=== PATIENT | female | born 1945 | race Caucasian/White ===

== ENCOUNTER 2018-04-23 03:25 | Emergency (ER) | payer OTHER | END 2018-04-23 06:21 | disposition home or self-care (01) | LOC: ED 03:25 ==

== ENCOUNTER 2018-08-13 11:11 | Observation (INO) | payer OTHER ==
[~2018-08-13] VITALS: Ht 160 cm; Wt 59.9 kg
[2018-08-13 11:15] VITALS: Ht 160 cm; Wt 59.9 kg
[2018-08-13 12:33] LABS: BASOPHIL % 0.3 % (0-2); PLATELET COUNT 258 x10^3mcL (130-400); RED CELL DISTRIBUTION WIDTH 13.3 % (11.5-14.5)
[2018-08-13 12:42] LABS: CALCIUM 9.4 mg/dL (8.5-10.1); CARBON DIOXIDE 28.3 mmol/L (21-32); CHLORIDE SERUM 101 mmol/L (98-107); CREATININE SERUM 0.8 mg/dL (0.6-1.0); GLUCOSE SERUM 111 mg/dL (74-106); POTASSIUM SERUM 3.4 mmol/L (3.5-5.1); SODIUM SERUM 137 mmol/L (136-145)
[2018-08-13 12:55] LABS: ALBUMIN 3.9 g/dL (3.4-5.0); ALKALINE PHOSPHATASE 94 U/L (46-116); ALT/SGPT 37 U/L (14-59); AST/SGOT 15 U/L (15-37); BILIRUBIN TOTAL 0.5 mg/dL (0.20-1.00); CHOLESTEROL 147 mg/dL (<200); HDL CHOLESTEROL 60 mg/dL (40-60); LIPASE 227 IU/L (73-393); T4(THYROXINE) 10.3 ug/dL (4.7-13.3); TOTAL PROTEIN, SERUM 7.6 g/dL (6.4-8.2)
[2018-08-13] MEDS ORDERED: FLA500 PO (13:46)
[2018-08-13] MEDS ORDERED: GOOD SENSE OMEP20 MG PO (13:46)
[2018-08-13] MEDS ORDERED: TETRACYCLINE H500 M1 PO (13:47)
[2018-08-13 14:08] LABS: microscopic required? YES; urine erythrocyte TRACE (NEGATIVE)
[2018-08-13 15:49] VITALS: BP 171/74
[2018-08-13 20:52] VITALS: BP 147/76
[2018-08-14 05:48] VITALS: BP 142/72
[2018-08-14 06:37] LABS: BASOPHIL % 0.5 % (0-2); PLATELET COUNT 225 x10^3mcL (130-400); RED CELL DISTRIBUTION WIDTH 13.8 % (11.5-14.5)
[2018-08-14 06:59] LABS: CARBON DIOXIDE 23.7 mmol/L (21-32); CHLORIDE SERUM 111 mmol/L (98-107); CREATININE SERUM 0.6 mg/dL (0.6-1.0); GLUCOSE SERUM 95 mg/dL (74-106); MAGNESIUM 2.1 mg/dL (1.8-2.4); POTASSIUM SERUM 4.1 mmol/L (3.5-5.1); SODIUM SERUM 145 mmol/L (136-145)
[2018-08-14 10:07] VITALS: BP 155/65
[2018-08-14 12:50] VITALS: BP 134/67
[2018-08-14] MEDS ORDERED: PROTONIX40 MG PO (17:21)
[2018-08-14 17:36] VITALS: BP 146/80
== END 2018-08-14 18:50 | disposition home or self-care (01) | DRG 392 ==
LOC: ED 11:11 → DU 14:26
PROVIDERS: Emergency Medicine; Internal Medicine; ADMIT Internal Medicine Pulmonary Disease
PROC: 0DB68ZX Excision of Stomach, Via Natural or Artificial Opening Endoscopic, Diagnostic (ICD-10-PCS; 2018-08-14)
PROC: 0DJD8ZZ Inspection of Lower Intestinal Tract, Via Natural or Artificial Opening Endoscopic (ICD-10-PCS; principal; 2018-08-14 11:00)
PROC: 0DB48ZX Excision of Esophagogastric Junction, Via Natural or Artificial Opening Endoscopic, Diagnostic (ICD-10-PCS; 2018-08-14 11:00)
DX: R19.7 Diarrhea, unspecified (principal); K62.5 Hemorrhage of anus and rectum; K62.89 Other specified diseases of anus and rectum; K22.70 Barrett's esophagus without dysplasia; K31.7 Polyp of stomach and duodenum; K21.9 Gastro-esophageal reflux disease without esophagitis; K29.50 Unspecified chronic gastritis without bleeding; B96.81 Helicobacter pylori [H. pylori] as the cause of diseases classified elsewhere
CPT/HCPCS: 43235; 45378; 82962; 83880; 87046; 87046-59; G0378; J0744; J1200; J1610; J2250; J2310; J3010; J3490; J7030; J7040; Q9966; Q9967